=== PATIENT | female | born 1995 | race Caucasian/White ===

== ENCOUNTER 2017-01-10 12:11 | Inpatient (IN) ==
[2017-01-10 12:42] LABS: Basophils % 0.1 %; Hematocrit 45.7 % (35.3-44.9); Hemoglobin 14.9 g/dL (11.5-15.4); Immature Granulocytes % 0.6 % (0-4); Lymphocytes # 0.5 K/mcL (0.6-4.6); Lymphocytes % 2.6 %; Mean Corpuscular HGB Conc 32.6 g/dL (31.6-35.5); Mean Corpuscular Hemoglobin 28.9 pg (28.0-33.3); Mean Corpuscular Volume 88.7 fL (83.0-100.0); Mean Platelet Volume 10.1 fL (9.4-12.4); Monocytes % 5.9 %; Neutrophils # 15.9 K/mcL (1.6-8.9); Platelet Count 356 K/mcL (140-400); Red Blood Count 5.15 M/mcL (3.82-4.97); Red Cell Distribution Width 11.9 % (11.5-14.5); Segmented Neutrophils % 90.8 %
[2017-01-10 12:56] LABS: Alanine Aminotransferase 636 Units/L (0-55); Albumin 4.3 g/dL (3.5-5.0); Alkaline Phosphatase 151 Units/L (38-126); Aspartate Amino Transferase 1081 Units/L (5-34); BUN/Creatinine Ratio 14 (6-26); Bilirubin,Direct 0.2 mg/dL (0.0-0.5); Bilirubin,Indirect 0.1 mg/dL (0.0-1.2); Bilirubin,Total 0.3 mg/dL (0.2-1.2); Blood Urea Nitrogen 18 mg/dL (7-20); Calcium 9.4 mg/dL (8.6-10.8); Carbon Dioxide 23 mEq/L (19-29); Chloride 106 mEq/L (98-109); Globulin 4.3 g/dL (2.4-3.5); Glucose 203 mg/dL (70-99); Lipase 10 Units/L (8-78); Osmolality,Calculated 300 (280-300); Potassium 4.6 mEq/L (3.5-4.5); Sodium 141 mEq/L (136-145); Total Protein 8.6 g/dL (6.0-8.3); eGFR For African Americans > 60 (> 60); eGFR For Non-African Americans 50 (> 60)
[2017-01-10] MEDS ORDERED: 0.9 % Sodium Chloride 1,000 ML IVC ONE ×2 (13:08→15:26)
[2017-01-10 13:16] LABS: Bilirubin,Urine Negative (Negative); Blood,Urine Large (Negative); Clarity,Urine Turbid (Clear); Color,Urine Red (Yellow); Glucose,Urine (UA) 100 mg/dL (Normal); Ketones,Urine Trace mg/dL (Negative); Leukocyte Esterase,Urine Small (Negative); Nitrite,Urine Negative (Negative); Protein,Urine 100 mg/dL (Neg-Trace); Specific Gravity,Urine 1.022 (1.010-1.025); Urobilinogen,Urine Normal (Normal)
--- NOTE | 2017-01-10 13:17 | Emergency Department Note ---
Disposition Clinical Impression: Hepatitis, Vomiting, IVDU (intravenous drug user), Marijuana abuse, Bilateral leg numbness, Leukocytosis, Lactic acidosis, Abnormal urinalysis, Renal insufficiency Disposition: Admitted As Inpatient General Adult HPI - General Chief complaint: ED Nausea/Vomiting/Diarrhea Stated complaint: N/V x2 days Time Seen by Provider: 01/10/17 13:06 Source: patient, family Limitations: no limitations - History of Present Illness HPI Narrative: 22-year-old female reports to the emergency department complaining of recurrent vomiting. The patient denies abdominal pain fever chest pain shortness of breath cough runny nose or ear pain. No back pain or syncope. There is no history of vaginal discharge bleeding or noted currently. She has not taken any new medications. The patient denies any diarrhea. She has not passed out. There is no history of sick contacts. History of headache neck stiffness rash convulsions or confusion no trouble walking talking hearing seeing or speaking. Pain Scale: 0 - Related Data Home Medications Medication Instructions Recorded Confirmed Etonogestrel [Nexplanon] 68 mg SQ ONCE 03/15/16 01/10/17 Acyclovir [Zovirax] 400 mg PO BID 01/10/17 01/10/17 Ranitidine HCl [Acid Foley Artist] 150 mg PO BID 01/10/17 01/10/17 Trazodone HCl 100 mg PO HS 01/10/17 01/10/17 Allergies Allergy/AdvReac Type Severity Reaction Status Date / Time Loracarbef [From Lorabid] AdvReac Hives Verified 03/15/16 13:13 All systems ED: reviewed and negative except as stated. Past Medical History - Past Medical History Medical history: Reports: other (IV heroin abuse) Psychiatric history: Reports: anxiety, depression - Social History Smoking Status: Former smoker Smokeless Tobacco Status: No Alcohol use: Reports: none Drug use: Reports: none Physical Exam - General Limitations: no limitations General appearance: alert, in no apparent distress - Head Head exam: atraumatic, normocephalic, normal inspection - Eye Eye exam: Present: normal appearance, PERRL, EOMI. Absent: scleral icterus, conjunctival injection - ENT ENT exam: normal exam, normal oropharynx, mucous membranes moist - Neck Neck exam: Present: normal inspection, full ROM, trachea midline - Chest Chest inspection: Present: symmetric chest wall rise - Respiratory Respiratory exam: Present: normal lung sounds bilaterally. Absent: respiratory distress, wheezes, stridor, accessory muscle use, prolonged expiratory phase - Cardiovascular Cardiovascular exam: Present: regular rate, normal rhythm, normal heart sounds - Abdominal Exam Abdominal exam: Present: soft, Non-Tender, normal bowel sounds. Absent: tenderness, distention, guarding, rebound, rigidity, trauma, Rovsing's sign, tenderness at McBurney's Point, ascites - Extremities Exam Extremities exam: Present: normal inspection, full ROM, normal capillary refill. Absent: tenderness, pedal edema, joint swelling, calf tenderness - Expanded Lower Extremity Exam Neurovascular/Tendon exam: Present: normal capillary refill. Absent: pulse deficit, motor deficit, sensory deficit, tendon deficit, extremity cold to touch , pallor - Back Exam Back exam: Present: normal inspection, full ROM. Absent: tenderness, CVA tenderness (R), CVA tenderness (L), muscle spasm, paraspinal tenderness, vertebral tenderness - Neurological Exam Neurological exam: Present: alert, oriented X3, CN II-XII intact. Absent: motor sensory deficit - Psychiatric Psychiatric exam: Present: normal affect, normal mood - Skin Skin exam: Present: warm, dry, intact, normal color. Absent: rash, cyanosis, diaphoresis, erythema, pallor, mottled Course Vital Signs Temperature 98.1 F 01/10/17 12:17 Pulse Rate 96 01/10/17 12:17 Respiratory Rate 18 01/10/17 12:17 Blood Pressure 106/66 01/10/17 12:17 O2 Sat by Pulse Oximetry 100 01/10/17 12:17 Temperature 97.6 F 01/10/17 13:31 Pulse Rate 85 01/10/17 13:31 Respiratory Rate 16 01/10/17 15:12 Blood Pressure 111/66 01/10/17 15:12 O2 Sat by Pulse Oximetry 98 01/10/17 13:31 Oxygen Delivery Oxygen Delivery Room Air Medical Decision Making - [facility] Narrative Medical decision making narrative: The patient has had vomiting, she has no medical leukocytosis potential acute renal insufficiency and lactic acidosis associated with notably abnormal liver function test. She has a history of IV drug abuse, hepatitis is certainly high in the differential, hepatitis panel was ordered, IV fluids were given. CT scan of the abdomen reveals no acute disease. During her stay the patient reported she had weakness in her legs, she states she is unable to stand well. Objectively she seems to have normative muscle strength and sensation. She describes an element of tingling or numbness. Based on the patient's vomiting, renal abnormalities, lactic acidosis, abnormal liver function tests, and complaints of leg weakness and/or numbness, I thought it would be appropriate to admit the patient to the hospital for further evaluation. She is agreeable and prefers to stay she does not feel comfortable going home. I reviewed the case with the hospitalist on-call who is accepting the patient to their care. The patient is currently stable pending admission. - Lab Data Lab results reviewed: Yes I reviewed the patient's lab results. Result diagrams: 01/10/17 12:33 01/10/17 12:33 Lab Results 01/10/17 01/10/17 01/10/17 Range/Units 12:33 12:33 13:04 WBC 17.5 H (4.3-11.1) K/mcL RBC 5.15 H (3.82-4.97) M/mcL Hgb 14.9 (11.5-15.4) g/dL Hct 45.7 H (35.3-44.9) % MCV 88.7 (83.0-100.0) fL MCH 28.9 (28.0-33.3) pg MCHC 32.6 (31.6-35.5) g/dL RDW 11.9 (11.5-14.5) % Plt Count 356 (140-400) K/mcL MPV 10.1 (9.4-12.4) fL Immature Gran % 0.6 (0-4) % Seg Neutrophils % 90.8 % Lymphocytes % 2.6 % Monocytes % 5.9 % Eosinophils % 0.0 % Basophils % 0.1 % Neutrophils # 15.9 H (1.6-8.9) K/mcL Lymphocytes # 0.5 L (0.6-4.6) K/mcL Monocytes # 1.0 (0.0-1.3) K/mcL Eosinophils # 0.0 (0.0-0.6) K/mcL Basophils # 0.0 (0.0-0.2) K/mcL Sodium 141 (136-145) mEq/L Potassium 4.6 H (3.5-4.5) mEq/L Chloride 106 (98-109) mEq/L Carbon Dioxide 23 (19-29) mEq/L BUN 18 (7-20) mg/dL Creatinine 1.32 H (0.57-1.11) mg/dL Est GFR ( Amer) > 60 (> 60) Est GFR (Non-Af Amer) 50 L (> 60) BUN/Creatinine Ratio 14 (6-26) Glucose 203 H (70-99) mg/dL Calculated Osmolality 300 (280-300) Lactic Acid (0.5-2.2) mmol/L Calcium 9.4 (8.6-10.8) mg/dL Total Bilirubin 0.3 (0.2-1.2) mg/dL Direct Bilirubin 0.2 (0.0-0.5) mg/dL Indirect Bilirubin 0.1 (0.0-1.2) mg/dL AST 1081 H (5-34) Units/L ALT 636 H (0-55) Units/L Alkaline Phosphatase 151 H (38-126) Units/L Creatine Kinase (29-168) Units/L C-Reactive Protein (Less than 5) mg/L Serum Total Protein 8.6 H (6.0-8.3) g/dL Albumin 4.3 (3.5-5.0) g/dL Globulin 4.3 H (2.4-3.5) g/dL Albumin/Globulin Ratio 1.0 L (1.1-2.2) Lipase 10 (8-78) Units/L Urine Color Red A (Yellow) Urine Clarity Turbid A (Clear) Urine pH 6.0 (5.0-8.0) pH Units Ur Specific [place] 1.022 (1.010-1.025) Urine Protein 100 H (Neg-Trace) mg/dL Urine Glucose (UA) 100 H (Normal) mg/dL Urine Ketones Trace H (Negative) mg/dL Urine Blood Large H (Negative) Urine Nitrite Negative (Negative) Urine Bilirubin Negative (Negative) Urine Urobilinogen Normal (Normal) mg/dL Ur Leukocyte Esterase Small H (Negative) Urine Microscopic RBC 15-30 H (0-3) per hpf Urine Microscopic WBC 5-15 H (0-3) per hpf Ur Squamous Epith Cells Many H (None-Few) per lpf Urine Bacteria None Seen (None-Few) per hpf Ur Culture Indicated? YES A (NO) Urine Test (Negative) Salicylates (15-30) mg/dL Urine Opiates Screen (Ktrdnk=365) ng/mL Acetaminophen (10-30) mcg/mL Ur Barbiturates Screen (Rzmeri=564) ng/mL Ur Phencyclidine Scrn (Cutoff=25) ng/mL Ur Amphetamines Screen (Awlpyk=9327) ng/mL U Benzodiazepines Scrn (Gkkzcp=745) ng/mL Urine Cocaine Screen (Cutoff= 300) ng/mL U Marijuana (THC) Screen (Cutoff = 50) ng/mL 01/10/17 01/10/17 01/10/17 Range/Units 13:04 13:08 13:12 WBC (4.3-11.1) K/mcL RBC (3.82-4.97) M/mcL Hgb (11.5-15.4) g/dL Hct (35.3-44.9) % MCV (83.0-100.0) fL MCH (28.0-33.3) pg MCHC (31.6-35.5) g/dL RDW (11.5-14.5) % Plt Count (140-400) K/mcL MPV (9.4-12.4) fL Immature Gran % (0-4) % Seg Neutrophils % % Lymphocytes % % Monocytes % % Eosinophils % % Basophils % % Neutrophils # (1.6-8.9) K/mcL Lymphocytes # (0.6-4.6) K/mcL Monocytes # (0.0-1.3) K/mcL Eosinophils # (0.0-0.6) K/mcL Basophils # (0.0-0.2) K/mcL Sodium (136-145) mEq/L Potassium (3.5-4.5) mEq/L Chloride (98-109) mEq/L Carbon Dioxide (19-29) mEq/L BUN (7-20) mg/dL Creatinine (0.57-1.11) mg/dL Est GFR ( Amer) (> 60) Est GFR (Non-Af Amer) (> 60) BUN/Creatinine Ratio (6-26) Glucose (70-99) mg/dL Calculated Osmolality (280-300) Lactic Acid 3.3 H (0.5-2.2) mmol/L Calcium (8.6-10.8) mg/dL Total Bilirubin (0.2-1.2) mg/dL Direct Bilirubin (0.0-0.5) mg/dL Indirect Bilirubin (0.0-1.2) mg/dL AST (5-34) Units/L ALT (0-55) Units/L Alkaline Phosphatase (38-126) Units/L Creatine Kinase (29-168) Units/L C-Reactive Protein (Less than 5) mg/L Serum Total Protein (6.0-8.3) g/dL Albumin (3.5-5.0) g/dL Globulin (2.4-3.5) g/dL Albumin/Globulin Ratio (1.1-2.2) Lipase (8-78) Units/L Urine Color (Yellow) Urine Clarity (Clear) Urine pH (5.0-8.0) pH Units Ur Specific [place] (1.010-1.025) Urine Protein (Neg-Trace) mg/dL Urine Glucose (UA) (Normal) mg/dL Urine Ketones (Negative) mg/dL Urine Blood (Negative) Urine Nitrite (Negative) Urine Bilirubin (Negative) Urine Urobilinogen (Normal) mg/dL Ur Leukocyte Esterase (Negative) Urine Microscopic RBC (0-3) per hpf Urine Microscopic WBC (0-3) per hpf Ur Squamous Epith Cells (None-Few) per lpf Urine Bacteria (None-Few) per hpf Ur Culture Indicated? (NO) Urine Test Negative (Negative) Salicylates (15-30) mg/dL Urine Opiates Screen Negative (Ieigdw=576) ng/mL Acetaminophen (10-30) mcg/mL Ur Barbiturates Screen Negative (Frnxiy=137) ng/mL Ur Phencyclidine Scrn Negative (Cutoff=25) ng/mL Ur Amphetamines Screen Negative (Lmkgkc=1725) ng/mL U Benzodiazepines Scrn Positive H (Ftitxr=972) ng/mL Urine Cocaine Screen Negative (Cutoff= 300) ng/mL U Marijuana (THC) Screen Positive H (Cutoff = 50) ng/mL 01/10/17 01/10/17 Range/Units 13:12 13:12 WBC (4.3-11.1) K/mcL RBC (3.82-4.97) M/mcL Hgb (11.5-15.4) g/dL Hct (35.3-44.9) % MCV (83.0-100.0) fL MCH (28.0-33.3) pg MCHC (31.6-35.5) g/dL RDW (11.5-14.5) % Plt Count (140-400) K/mcL MPV (9.4-12.4) fL Immature Gran % (0-4) % Seg Neutrophils % % Lymphocytes % % Monocytes % % Eosinophils % % Basophils % % Neutrophils # (1.6-8.9) K/mcL Lymphocytes # (0.6-4.6) K/mcL Monocytes # (0.0-1.3) K/mcL Eosinophils # (0.0-0.6) K/mcL Basophils # (0.0-0.2) K/mcL Sodium (136-145) mEq/L Potassium (3.5-4.5) mEq/L Chloride (98-109) mEq/L Carbon Dioxide (19-29) mEq/L BUN (7-20) mg/dL Creatinine (0.57-1.11) mg/dL Est GFR ( Amer) (> 60) Est GFR (Non-Af Amer) (> 60) BUN/Creatinine Ratio (6-26) Glucose (70-99) mg/dL Calculated Osmolality (280-300) Lactic Acid (0.5-2.2) mmol/L Calcium (8.6-10.8) mg/dL Total Bilirubin (0.2-1.2) mg/dL Direct Bilirubin (0.0-0.5) mg/dL Indirect Bilirubin (0.0-1.2) mg/dL AST (5-34) Units/L ALT (0-55) Units/L Alkaline Phosphatase (38-126) Units/L Creatine Kinase > 36481 H (29-168) Units/L C-Reactive Protein 7 H (Less than 5) mg/L Serum Total Protein (6.0-8.3) g/dL Albumin (3.5-5.0) g/dL Globulin (2.4-3.5) g/dL Albumin/Globulin Ratio (1.1-2.2) Lipase (8-78) Units/L Urine Color (Yellow) Urine Clarity (Clear) Urine pH (5.0-8.0) pH Units Ur Specific [place] (1.010-1.025) Urine Protein (Neg-Trace) mg/dL Urine Glucose (UA) (Normal) mg/dL Urine Ketones (Negative) mg/dL Urine Blood (Negative) Urine Nitrite (Negative) Urine Bilirubin (Negative) Urine Urobilinogen (Normal) mg/dL Ur Leukocyte Esterase (Negative) Urine Microscopic RBC (0-3) per hpf Urine Microscopic WBC (0-3) per hpf Ur Squamous Epith Cells (None-Few) per lpf Urine Bacteria (None-Few) per hpf Ur Culture Indicated? (NO) Urine Test (Negative) Salicylates < 5.0 L (15-30) mg/dL Urine Opiates Screen (Plbfsk=602) ng/mL Acetaminophen < 1.0 L (10-30) mcg/mL Ur Barbiturates Screen (Mnfede=644) ng/mL Ur Phencyclidine Scrn (Cutoff=25) ng/mL Ur Amphetamines Screen (Skfqnb=0896) ng/mL U Benzodiazepines Scrn (Ufbizm=188) ng/mL Urine Cocaine Screen (Cutoff= 300) ng/mL U Marijuana (THC) Screen (Cutoff = 50) ng/mL - Radiology Data Radiology results reviewed: Yes I reviewed the patient's radiology results.
[2017-01-10 13:19] LABS: Bacteria,Urine None Seen per hpf (None-Few); Squamous Epithelial Cell,Urine Many per lpf (None-Few)
[2017-01-10 13:31] LABS: RBC,Urine 15-30 per hpf (0-3)
[2017-01-10 13:54] LABS: Acetaminophen < 1.0 mcg/mL (10-30); Salicylate < 5.0 mg/dL (15-30)
[2017-01-10 14:06] LABS: Amphetamine Screen,Urine Negative ng/mL (Cutoff=1000); Barbiturate Screen,Urine Negative ng/mL (Cutoff=200); Benzodiazepines Screen,Urine Positive ng/mL (Cutoff=200); Cannabinoid Screen,Urine Positive ng/mL (Cutoff = 50); Cocaine Screen,Urine Negative ng/mL (Cutoff= 300); Opiate Screen,Urine Negative ng/mL (Cutoff=300); Phencyclidine Screen,Urine Negative ng/mL (Cutoff=25)
[2017-01-10 14:52] LABS: Creatine Kinase > 42670 Units/L (29-168)
[2017-01-10] MEDS ORDERED: Mag Hydrox/Al Hydrox/Simeth 30 ML UDC PO PRN (15:46)
[2017-01-10] MEDS ORDERED: *HR* Promethazine 25 MG/ML VIAL IVP PRN (15:46)
[2017-01-10] MEDS ORDERED: Naloxone 0.4 MG/ML INJ IVP PRN (15:46)
--- NOTE | 2017-01-10 15:54 | Internal Med History&Physical ---
Date of Encounter: 01/10/17 Time of Encounter: 15:52 Assessment and Plan (1) Rhabdomyolysis Current visit: Yes Status: Acute Will admit the pt into Tele Pt does have severe rhabdomyolysis - could be due to dehydration Cont aggressive IV hydration Cont close monitoring her CK total Q6hr Trend on Lactic acid Blood sugars are slightly elevated will check HbA1C Also will do ACHS Accuchecks Qualifiers: Qualified Code(s): M62.82 - Rhabdomyolysis (2) Bilateral leg numbness Current visit: Yes Status: Acute Mostly due to rhabdomyolysis No signs of compartment syndrome will cont close monitoring (3) Hepatitis Current visit: Yes Status: Acute Mostly alcohol induced also conerned for viral hepatitis will check viral hepatitis panel cont symptomatic and supportive care (4) Leukocytosis Current visit: Yes Status: Acute Mostly reactive no signs of infection no need of abx cont trending on WBC Qualifiers: Qualified Code(s): D72.829 - Elevated white blood cell count, unspecified (5) Alcohol dependence Current visit: Yes Status: Acute She does drink 6 pack beers few times a week has last alcohol 2 days ago will monitor for withdrawl symptoms CIWA protocol Qualifiers: Qualified Code(s): F10.20 - Alcohol dependence, uncomplicated (6) Renal insufficiency Current visit: Yes Status: Acute due to dehydration on IV fluids (7) Marijuana abuse Current visit: Yes Status: Acute Counseled to quit drugs Internal Medicine - H&P: HPI Chief complaint: Nausea / Vomiting Admitted From: Emergency Dept Plans for Post Hospital Care: Home History of present illness: Ms. 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 Unable to hold anything down. She also c/o severe numbness in both feet. Denied any diarrhea. Denied any abdominal pain. No CP / SOB. Denied any sick contacts. Denied any recent travel history. Past Med Surg Social Fam HX - Past Medical History Medical history: other (IV heroin abuse) Psychiatric history: anxiety, depression - Past Surgical History Surgical History: no surgical history - Social History Smoking Status: Former smoker Smokeless Tobacco Status: No Alcohol use: heavy, recent (drinks 6 pack 2-3 times a week) Drug use: none Occupational status: employed - Additional Family History Additional family history: Reviewed and non contribuitory to current problem Internal Medicine - H&P: Meds Etonogestrel [Nexplanon] 68 mg SQ ONCE 03/15/16 [History] Acyclovir [Zovirax] 400 mg PO BID 01/10/17 [History] Ranitidine HCl [Acid Instrument Panel Assembler] 150 mg PO BID 01/10/17 [History] Trazodone HCl 100 mg PO HS 01/10/17 [History] 3 Allergy/AdvReac Type Severity Reaction Status Date / Time Loracarbef [From Lorabid] AdvReac Hives Verified 03/15/16 13:13 All Systems PM: A 10-system review of systems was performed and is negative for pertinent findings except as documented above in the HPI. Review of systems: All the systems are reviewed everything is benign except the systems and symptoms I mentioned in the history of present illness - Constitutional Vitals: Temp Pulse Resp BP Pulse Ox 97.9 F 97 16 108/68 97 01/10/17 15:41 01/10/17 15:41 01/10/17 15:41 01/10/17 15:41 01/10/17 15:41 General appearance: Present: A&O X 3 - Head Head exam: Present: atraumatic, normal inspection - Respiratory Respiratory exam: Present: CTAB. Absent: accessory muscle use, rales, rhonchi, wheezes - Cardiovascular Cardiovascular exam: Present: RRR, +S1, +S2. Absent: diastolic murmur, gallop, rubs, systolic murmur - GI/Abdominal GI/Abdominal exam: Present: normal bowel sounds, soft, no peritoneal signs. Absent: distended, tenderness - Extremities Exam Extremities exam: Present: warm, radial pulses palpable and symmetrical. Absent : calf tenderness, cyanotic, pedal edema Additional comments: no tenderness... No swelling noticed in both LE - Neurological Exam Neurological exam: Present: alert, CN II-XII intact, oriented X3, no focal deficits, strengths equal and symetr throughout Additional comments: mild sensory deficit in both feet to fine touch. - Psychiatric Psychiatric exam: Present: normal affect, normal mood Internal Med - H&P Results - Labs CBC & Chem 7: 01/10/17 12:33 01/10/17 12:33
[2017-01-10] MEDS ORDERED: 0.9 % Sodium Chloride 1,000 ML IVC SCH (16:00)
[2017-01-10] MEDS: Nicotine 14 MG PATCH.TD24 TD SCH (17:20)
[2017-01-10] MEDS: Ondansetron 4 MG/2 ML VIAL IVP PRN (17:41)
[2017-01-10] MEDS: *HR* Morphine 2 MG/ML SYRINGE IVP PRN (19:51)
[2017-01-10] MEDS: Famotidine 20 MG TABLET PO SCH (19:53)
[2017-01-10] MEDS: 0.9 % Sodium Chloride 1,000 ML IVC SCH ×2 (19:54→22:07)
[2017-01-11] MEDS: *HR* OxyCODONE Immed Rel 5 MG TABLET PO PRN ×4 (00:04→20:22)
[2017-01-11 00:52] LABS: Hematocrit 39.5 % (35.3-44.9); Immature Granulocytes % 0.2 % (0-4); Lymphocytes % 15.2 %; Mean Corpuscular HGB Conc 33.2 g/dL (31.6-35.5); Mean Corpuscular Hemoglobin 29.8 pg (28.0-33.3); Mean Corpuscular Volume 89.8 fL (83.0-100.0); Mean Platelet Volume 10.2 fL (9.4-12.4); Monocytes % 8.5 %; Platelet Count 286 K/mcL (140-400); Red Cell Distribution Width 12.3 % (11.5-14.5); Segmented Neutrophils % 75.7 %
[2017-01-11 00:53] LABS: Basophils % 0.2 %; Eosinophils % 0.2 %; Hemoglobin 13.1 g/dL (11.5-15.4); Lymphocytes # 1.9 K/mcL (0.6-4.6); Monocytes # 1.1 K/mcL (0.0-1.3); Neutrophils # 9.3 K/mcL (1.6-8.9)
[2017-01-11 01:13] LABS: Alanine Aminotransferase 550 Units/L (0-55); Alkaline Phosphatase 114 Units/L (38-126); Aspartate Amino Transferase 968 Units/L (5-34); BUN/Creatinine Ratio 11 (6-26); Bilirubin,Total 0.4 mg/dL (0.2-1.2); Blood Urea Nitrogen 10 mg/dL (7-20); Calcium 8.3 mg/dL (8.6-10.8); Carbon Dioxide 21 mEq/L (19-29); Chloride 110 mEq/L (98-109); Chol/HDL Ratio 2.9 (0-4.9); Cholesterol 143 mg/dL (< 200); Globulin 3.3 g/dL (2.4-3.5); Glucose 88 mg/dL (70-99); HDL Cholesterol 50 mg/dL (40-59); LDL Cholesterol,Calculated 83 mg/dL (0-99); Magnesium 1.8 mg/dL (1.6-2.6); Osmolality,Calculated 284 (280-300); Phosphorous 2.7 mg/dL (2.3-4.7); Potassium 4.2 mEq/L (3.5-4.5); Sodium 138 mEq/L (136-145); Triglycerides 49 mg/dL (< 150); eGFR For African Americans > 60 (> 60); eGFR For Non-African Americans > 60 (> 60)
[2017-01-11 01:14] LABS: Albumin 3.2 g/dL (3.5-5.0); Total Protein 6.5 g/dL (6.0-8.3)
[2017-01-11] MEDS: 0.9 % Sodium Chloride 1,000 ML IVC SCH ×5 (02:10→22:40)
[2017-01-11] MEDS: *HR* Morphine 2 MG/ML SYRINGE IVP PRN ×2 (06:13→12:27)
[2017-01-11] MEDS: Famotidine 20 MG TABLET PO SCH ×2 (08:35→20:22)
[2017-01-11] MEDS: Nicotine 14 MG PATCH.TD24 TD SCH (09:04)
[2017-01-11] MEDS ORDERED: *HR* LORazepam 2 MG/ML VIAL IVP PRN ×3 (10:48)
[2017-01-11 11:40] LABS: Triiodothyronine (T3) Free 2.9 pg/mL (1.71-3.71)
[2017-01-11] MEDS ORDERED: Ketorolac 30 MG/ML VIAL IVP ONE (13:43)
--- NOTE | 2017-01-11 17:02 | Internal Med Progress Note ---
Date of Encounter: 01/11/17 Time of Encounter: 09:25 - Assessment and plan (1) Rhabdomyolysis Current Visit: Yes Status: Acute Assessment and plan: Acute rhabdomyolysis. Uncertain etiology. Discussed with rheumatology. We will send for testing to rule out rheumatologic disorders which can cause muscle injury. CPK levels are improving. We will continue to monitor. Renal function has normalized. Pain control. Will arrange for follow-up with rheumatology after discharge to further evaluate patient. Qualifiers: Rhabdomyolysis type: non-traumatic Qualified Code(s): M62.82 - Rhabdomyolysis (2) Group B streptococcal bacteriuria Current Visit: Yes Status: Acute Assessment and plan: Urine positive for group B streptococci. Although patient is not , given no other cause for her rhabdomyolysis, we will treat this episode with penicillins. (3) Alcohol dependence Current Visit: Yes Status: Chronic Assessment and plan: No signs of withdrawal at this time. We will continue to monitor per [facility] protocol Qualifiers: Qualified Code(s): F10.20 - Alcohol dependence, uncomplicated (4) Bilateral leg numbness Current Visit: Yes Status: Acute Assessment and plan: Likely related to rhabdomyolysis. Patient does have recurring sensation and good strength in both lower extremities (5) Hepatitis Current Visit: Yes Status: Suspected Assessment and plan: Elevated liver markers most likely related to rhabdomyolysis. Hepatitis viral serologies have been sent and will be followed (6) Leukocytosis Current Visit: Yes Status: Acute Assessment and plan: Likely related to rhabdomyolysis. Improving WBC count Qualifiers: Qualified Code(s): D72.829 - Elevated white blood cell count, unspecified (7) Marijuana abuse Current Visit: Yes Status: Acute (8) Renal insufficiency Current Visit: Yes Status: Resolved Assessment and plan: This has now resolved - Subjective Interval history: Patient complains of continued lower extremity pain bilaterally. Continues to report numbness but it is getting better. Has good strength in both lower extremities. No fever or chills reported overnight. No rashes. Having good urine output. - Constitutional Vitals: Temp Pulse Resp BP Pulse Ox 98.1 F 82 16 103/67 97 01/11/17 14:49 01/11/17 14:49 01/11/17 14:49 01/11/17 14:49 01/11/17 14:49 General appearance: Present: cooperative, mild distress, A&O X 3, pleasant, answers questions appropriately - Neck Neck exam general surgery: Present: supple, trachea midline. Absent: lymphadenopathy - Respiratory Respiratory exam: Present: CTAB. Absent: accessory muscle use, rales, rhonchi, wheezes - Cardiovascular Cardiovascular exam: Present: RRR, +S1, +S2. Absent: diastolic murmur, gallop, rubs, systolic murmur - GI/Abdominal GI/Abdominal exam: Present: normal bowel sounds, soft, no peritoneal signs. Absent: distended, tenderness - Extremities Exam Extremities exam: Present: tenderness (Bilateral lower extremity muscle tenderness Especially over the right upper thigh muscles), warm, radial pulses palpable and symmetrical. Absent: calf tenderness, cyanotic, pedal edema - Neurological Exam Neurological exam: Present: CN II-XII intact, oriented X3, no focal deficits, strengths equal and symetr throughout. Absent: facial droop, speech deficit Additional comments: Patient does have good strength in both lower extremities. Reports numbness to light touch but does have good temperature sensation. - Skin Skin exam: Present: dry, intact Internal Medicine: Result - Labs CBC & Chem 7: 01/11/17 00:42 01/11/17 00:42 Labs: Short CBC 01/11/17 Range/Units 00:42 WBC 12.3 H (4.3-11.1) K/mcL Hgb 13.1 D (11.5-15.4) g/dL Hct 39.5 (35.3-44.9) % Plt Count 286 (140-400) K/mcL Neutrophils # 9.3 H (1.6-8.9) K/mcL BMP 01/11/17 00:42 Sodium 138 Potassium 4.2 Chloride 110 H Carbon Dioxide 21 BUN 10 Creatinine 0.87 Glucose 88 Calcium 8.3 L Liver Function 01/11/17 Range/Units 00:42 Total Bilirubin 0.4 (0.2-1.2) mg/dL AST 968 H (5-34) Units/L ALT 550 H (0-55) Units/L Alkaline Phosphatase 114 (38-126) Units/L Albumin 3.2 L D (3.5-5.0) g/dL Consult Discharge Plan - Plan Referrals: Millie Walsh [Student Nurse] - 01/17/17 9:30 am NONE,PCP [Primary Care Provider] -
[2017-01-11] MEDS: Ampicillin 2 GM in 0.9 % Sodium Chloride Mini Bag 100 ML IVPB SCH (18:00)
[2017-01-11] MEDS: *HR* Heparin 5,000 UNIT/ML VIAL SQ SCH (18:00)
[2017-01-11] MEDS: Ondansetron 4 MG/2 ML VIAL IVP PRN (21:51)
[2017-01-12] MEDS: Ampicillin 2 GM in 0.9 % Sodium Chloride Mini Bag 100 ML IVPB SCH ×4 (00:21→16:19)
[2017-01-12 05:15] LABS: Basophils % 0.3 %; Eosinophils # 0.1 K/mcL (0.0-0.6); Eosinophils % 1.3 %; Hematocrit 34.5 % (35.3-44.9); Immature Granulocytes % 0.3 % (0-4); Lymphocytes # 2.1 K/mcL (0.6-4.6); Lymphocytes % 30.7 %; Mean Corpuscular Hemoglobin 29.5 pg (28.0-33.3); Mean Corpuscular Volume 89.4 fL (83.0-100.0); Mean Platelet Volume 10.5 fL (9.4-12.4); Monocytes # 0.6 K/mcL (0.0-1.3); Neutrophils # 4.1 K/mcL (1.6-8.9); Platelet Count 236 K/mcL (140-400); Red Blood Count 3.86 M/mcL (3.82-4.97); Red Cell Distribution Width 12.3 % (11.5-14.5); Segmented Neutrophils % 58.4 %
[2017-01-12 05:23] LABS: Hemoglobin 11.4 g/dL (11.5-15.4)
[2017-01-12 05:30] LABS: Alanine Aminotransferase 426 Units/L (0-55); Albumin 2.6 g/dL (3.5-5.0); Albumin/Globulin Ratio 0.9 (1.1-2.2); Alkaline Phosphatase 86 Units/L (38-126); Aspartate Amino Transferase 579 Units/L (5-34); Bilirubin,Total 0.4 mg/dL (0.2-1.2); Calcium 8.4 mg/dL (8.6-10.8); Carbon Dioxide 22 mEq/L (19-29); Chloride 113 mEq/L (98-109); Globulin 2.9 g/dL (2.4-3.5); Glucose 90 mg/dL (70-99); Osmolality,Calculated 288 (280-300); Potassium 3.8 mEq/L (3.5-4.5); Sodium 141 mEq/L (136-145); Total Protein 5.5 g/dL (6.0-8.3); eGFR For African Americans > 60 (> 60); eGFR For Non-African Americans > 60 (> 60)
[2017-01-12] MEDS: *HR* Heparin 5,000 UNIT/ML VIAL SQ SCH ×2 (05:30→16:21)
[2017-01-12] MEDS: *HR* OxyCODONE Immed Rel 5 MG TABLET PO PRN ×2 (05:33→19:57)
[2017-01-12] MEDS: 0.9 % Sodium Chloride 1,000 ML IVC SCH ×2 (05:34→11:52)
[2017-01-12 06:50] LABS: Creatine Kinase 22609 Units/L (29-168)
[2017-01-12 07:01] LABS: BUN/Creatinine Ratio 7 (6-26)
[2017-01-12 07:02] LABS: Blood Urea Nitrogen 4 mg/dL (7-20)
[2017-01-12] MEDS: Thiamine (B-1) 100 MG TABLET PO SCH (08:48)
[2017-01-12] MEDS: Folic Acid 1 MG TABLET PO SCH (08:48)
[2017-01-12] MEDS: Famotidine 20 MG TABLET PO SCH ×2 (08:48→19:58)
[2017-01-12] MEDS: Nicotine 14 MG PATCH.TD24 TD SCH (08:53)
[2017-01-12] MEDS: Vitamin B Complex/Vit C/Vit E 1 EACH TABLET PO SCH (08:53)
[2017-01-12] MEDS: Acetaminophen/Butalbital/CaffeineTABLET PO PRN ×2 (09:52→17:30)
[2017-01-12] MEDS: Ondansetron 4 MG/2 ML VIAL IVP PRN ×2 (09:53→19:31)
[2017-01-12 10:16] LABS: Hepatitis A Antibody IgM Nonreactive (Nonreactive); Hepatitis B Core IgM Nonreactive (Nonreactive); Hepatitis B Surface Antigen Nonreactive (Nonreactive); Hepatitis C Virus Antibody Reactive (Nonreactive)
--- NOTE | 2017-01-12 15:28 | Internal Med Progress Note ---
Date of Encounter: 01/12/17 Time of Encounter: 09:15 - Assessment and plan (1) Rhabdomyolysis Current Visit: Yes Status: Acute Assessment and plan: CK levels continued to trend down. Continue IV hydration. Rheumatologic workup has so far been negative. We will arrange follow-up with rheumatology as outpatient for further evaluation as to causes of her rhabdomyolysis. Qualifiers: Rhabdomyolysis type: non-traumatic Qualified Code(s): M62.82 - Rhabdomyolysis (2) Group B streptococcal bacteriuria Current Visit: Yes Status: Acute Assessment and plan: Treating with ampicillin (3) Alcohol dependence Current Visit: Yes Status: Chronic Assessment and plan: Not in withdrawal. Continue monitoring per [facility] protocol. Qualifiers: Substance use status: uncomplicated Qualified Code(s): F10.20 - Alcohol dependence, uncomplicated (4) Bilateral leg numbness Current Visit: Yes Status: Acute Assessment and plan: Improving. Likely from muscle injury and rhabdomyolysis. (5) Hepatitis Current Visit: Yes Status: Acute Assessment and plan: Patient positive for hepatitis C. (6) Leukocytosis Current Visit: Yes Status: Resolved Qualifiers: Qualified Code(s): D72.829 - Elevated white blood cell count, unspecified (7) Marijuana abuse Current Visit: Yes Status: Acute (8) Renal insufficiency Current Visit: Yes Status: Resolved - Subjective Interval history: Patient is feeling better today. Feels that the sensation and strength in her lower extremities is improving. Does complain of a severe migraine headache. She does not report history of migraines. No blurred vision. No neck stiffness. No pain anywhere else. Able to ambulate to and from from bedside commode. - Constitutional Vitals: Temp Pulse Resp BP Pulse Ox 98.4 F 82 16 135/97 95 01/12/17 14:56 01/12/17 14:56 01/12/17 14:56 01/12/17 14:56 01/12/17 14:56 General appearance: Present: cooperative, mild distress, A&O X 3, pleasant, answers questions appropriately - Respiratory Respiratory exam: Present: CTAB. Absent: accessory muscle use, rales, rhonchi, wheezes - Cardiovascular Cardiovascular exam: Present: RRR, +S1, +S2. Absent: diastolic murmur, gallop, rubs, systolic murmur - GI/Abdominal GI/Abdominal exam: Present: normal bowel sounds, soft, no peritoneal signs. Absent: distended, tenderness - Extremities Exam Extremities exam: Present: warm, radial pulses palpable and symmetrical. Absent : calf tenderness, cyanotic, pedal edema, tenderness - Neurological Exam Neurological exam: Present: alert, CN II-XII intact, oriented X3, no focal deficits. Absent: facial droop, speech deficit - Skin Skin exam: Present: dry, intact Internal Medicine: Result - Labs CBC & Chem 7: 01/12/17 04:54 01/12/17 04:54 Labs: Short CBC 01/12/17 Range/Units 04:54 WBC 7.0 (4.3-11.1) K/mcL Hgb 11.4 L D (11.5-15.4) g/dL Hct 34.5 L (35.3-44.9) % Plt Count 236 (140-400) K/mcL Neutrophils # 4.1 (1.6-8.9) K/mcL BMP 01/12/17 04:54 Sodium 141 Potassium 3.8 Chloride 113 H Carbon Dioxide 22 BUN 4 L Creatinine 0.60 Glucose 90 Calcium 8.4 L Liver Function 01/12/17 Range/Units 04:54 Total Bilirubin 0.4 (0.2-1.2) mg/dL AST 579 H (5-34) Units/L ALT 426 H (0-55) Units/L Alkaline Phosphatase 86 (38-126) Units/L Albumin 2.6 L (3.5-5.0) g/dL Consult Discharge Plan - Plan Referrals: Millie Walsh [Student Nurse] - 01/17/17 9:30 am NONE,PCP [Primary Care Provider] -
[2017-01-12] MEDS: D5% in 0.45% NACL 1,000 ML IVC SCH (16:21)
[2017-01-13] MEDS: Ampicillin 2 GM in 0.9 % Sodium Chloride Mini Bag 100 ML IVPB SCH ×2 (00:16→05:32)
[2017-01-13] MEDS: Acetaminophen/Butalbital/CaffeineTABLET PO PRN (02:58)
[2017-01-13] MEDS: D5% in 0.45% NACL 1,000 ML IVC SCH ×2 (03:00→10:59)
[2017-01-13] MEDS: *HR* Heparin 5,000 UNIT/ML VIAL SQ SCH (05:34)
[2017-01-13 07:35] VITALS: BP 100/64
[2017-01-13] MEDS: Thiamine (B-1) 100 MG TABLET PO SCH (08:33)
[2017-01-13] MEDS: Folic Acid 1 MG TABLET PO SCH (08:33)
[2017-01-13] MEDS: Vitamin B Complex/Vit C/Vit E 1 EACH TABLET PO SCH (08:33)
[2017-01-13] MEDS: Famotidine 20 MG TABLET PO SCH (08:33)
[2017-01-13] MEDS: *HR* OxyCODONE Immed Rel 5 MG TABLET PO PRN (08:39)
[2017-01-13] MEDS: Nicotine 14 MG PATCH.TD24 TD SCH (10:26)
--- NOTE | 2017-01-13 11:54 | Discharge Summary ---
Date of Encounter: 01/13/17 Time of Encounter: 11:42 - Discharge Diagnosis (1) Rhabdomyolysis Priority: Primary Status: Acute Qualifiers: Rhabdomyolysis type: non-traumatic Qualified Code(s): M62.82 - Rhabdomyolysis (2) Group B streptococcal bacteriuria Priority: Secondary Status: Acute (3) Alcohol dependence Priority: Secondary Status: Chronic Qualifiers: Substance use status: uncomplicated Qualified Code(s): F10.20 - Alcohol dependence, uncomplicated (4) Bilateral leg numbness Priority: Secondary Status: Acute (5) Hepatitis Priority: Secondary Status: Acute (6) Leukocytosis Priority: Secondary Status: Resolved Qualifiers: Leukocytosis type: other Qualified Code(s): D72.828 - Other elevated white blood cell count (7) Marijuana abuse Priority: Secondary Status: Acute (8) Renal insufficiency Priority: Secondary Status: Resolved - Discharge Medications Prescriptions: Ampicillin Trihydrate 500 mg PO Q6H #6 capsule Home Medications: Etonogestrel [Nexplanon] 68 mg SQ ONCE 03/15/16 [History] Acyclovir [Zovirax] 400 mg PO BID 01/10/17 [History] Ranitidine HCl [Acid Radio Antenna Installer] 150 mg PO BID 01/10/17 [History] Trazodone HCl 100 mg PO HS 01/10/17 [History] Ampicillin Trihydrate 500 mg PO Q6H #6 capsule 01/13/17 [Rx] Allergies/Adverse Reactions: 3 Allergy/AdvReac Type Severity Reaction Status Date / Time Loracarbef [From Lorabid] AdvReac Hives Verified 03/15/16 13:13 Date of admission: 01/10/17 15:58 Primary care physician: PCP NONE Discharging clinician: Jose Villarreal Anticipated date of discharge: 01/13/17 - Patient Status Disposition: Home, Self-Care Condition: Good Functional capacity at discharge: independent ambulation Overall status at discharge: patient is progressing back to baseline - Discharge Instructions Follow Up With: NONE,PCP [Primary Care Provider] - (in 1-2 weeks) Misael Gordillo DO [Partnered Physician] - (1 week) Forms: Work/School Release Additional Instructions: If you develop pain and weakness again, come to the ER right away - Diet and Activity Activity: increase activity as tolerated Diet: advance to your usual diet, other (Drink plenty of fluids) Hospital course: Ms. Akers is a 22 year old female patient with past medical history of prior hepatitis C diagnosis and prior history of IV drug abuse was hospitalized here with acute rhabdomyolysis of uncertain etiology. She had been having decreased sensation in her lower extremities along with increased pain. She reported no recent increased exercise or changes to medications. She also has not been taking any weight loss supplements and is not on any statins. Her CK level on initial presentation to the ER was greater than 42,670. She also had mild kidney injury with creatinine of 1.32. She was started on treatment for this with intravenous fluids. Her ESR was normal while the CRP was slightly elevated at 7. Extensive rheumatologic workup was also done and so far has been negative. Only thing positive was hepatitis C antibody. I discussed her case with rheumatology and they will evaluate the patient in the clinic to further ascertain etiology. With intravenous hydration, patient's symptoms improved and her CK level has been slowly coming down. This morning her CPK level is 18,031. However her symptoms have significantly improved and patient is able to ambulate well without any pain or discomfort. Her sensation has also returned. As such she is clinically stable for discharge and will follow- up with her primary care provider and rheumatology as outpatient. She is advised to drink plenty of fluids. She is also advised to avoid strenuous exercise or at least a week. She will get her CPK level checked in 2-3 days. Her urine was positive for group B streptococci and she was treated with ampicillin. She will complete a short 3 day course of treatment for this - Time Spent with Patient Total time spent providing and/or coordinating discharge services: Less than 30 minutes (25 min) - Constitutional Vitals: Temp Pulse Resp BP Pulse Ox 98.5 F 70 14 100/64 98 01/13/17 07:31 01/13/17 07:31 01/13/17 07:31 01/13/17 07:31 01/13/17 07:31 General appearance: Present: cooperative, A&O X 3, pleasant, no acute distress, answers questions appropriately - Cardiovascular Cardiovascular exam: Present: RRR, +S1, +S2. Absent: diastolic murmur, gallop, rubs, systolic murmur - GI/Abdominal GI/Abdominal exam: Present: normal bowel sounds, soft, no peritoneal signs. Absent: distended, tenderness - Extremities Exam Extremities exam: Present: warm, radial pulses palpable and symmetrical. Absent : calf tenderness, cyanotic, pedal edema - Neurological Exam Neurological exam: Present: CN II-XII intact, oriented X3, no focal deficits, strengths equal and symetr throughout. Absent: facial droop, speech deficit - Skin Skin exam: Present: dry, intact
[2017-01-13 11:56] LABS: ANA IgG by ELISA NONE DETECTED (None Detected)
[2017-01-13 18:38] LABS: APTT (LE Anticoag) 36 sec (32-48); Diluted Russell Viper Venom 35 sec (33-44); PT (LE-Anticoag) 13.6 sec (12.0-15.5)
[2017-01-19 07:41] LABS: Myeloperoxidase Ab 1 AU/mL (0-19); Serine Protease-3 Antibody 0 AU/mL (0-19)
== END 2017-01-13 13:20 | disposition home or self-care (01) | DRG 351 ==
LOC: 3ANU 12:11 → EMEROO 12:11 → 3ANU 15:25
PROVIDERS: ADMIT Family Medicine; ATTEND Internal Medicine

== ENCOUNTER 2019-07-23 12:23 | Inpatient (IN) ==
[2019-07-23 11:13] LABS: Basophils % 0.3 %; Eosinophils # 0.2 K/mcL (0.0-0.6); Eosinophils % 1.7 %; Hemoglobin 9.8 g/dL (11.5-15.4); Immature Granulocytes % 0.3 % (0-4); Lymphocytes # 1.8 K/mcL (0.6-4.6); Lymphocytes % 21.1 %; Mean Corpuscular HGB Conc 31.6 g/dL (31.6-35.5); Mean Corpuscular Hemoglobin 26.8 pg (28.0-33.3); Mean Corpuscular Volume 84.9 fL (83.0-100.0); Mean Platelet Volume 11.7 fL (9.4-12.4); Monocytes # 0.9 K/mcL (0.0-1.3); Monocytes % 10.2 %; Neutrophils # 5.8 K/mcL (1.6-8.9); Nucleated Red Blood Cells 0.6 /100 WBC (0); Platelet Count 314 K/mcL (140-400); Red Blood Count 3.65 M/mcL (3.82-4.97); Red Cell Distribution Width 13.2 % (11.5-14.5); Segmented Neutrophils % 66.4 %; White Blood Count 8.7 K/mcL (4.3-11.1)
[2019-07-23 11:21] LABS: Bilirubin,Urine Negative (Negative); Blood,Urine Negative (Negative); Color,Urine Yellow (Yellow); Glucose,Urine (UA) Normal (Normal); Ketones,Urine Negative (Negative); Leukocyte Esterase,Urine Small (Negative); Nitrite,Urine Negative (Negative); PH,Urine 7.5 pH Units (5.0-8.0); Protein,Urine 30 mg/dL (Neg-Trace); Specific Gravity,Urine 1.018 (1.010-1.025); Urobilinogen,Urine Normal (Normal)
[2019-07-23 11:22] LABS: Protein/Creatinine Ratio,Urine 0.7 mg/mg (0.00-0.20)
[2019-07-23 11:23] LABS: Bacteria,Urine Moderate per hpf (None-Few); Hyaline Casts,Urine None Seen per lpf (None-Few); RBC,Urine 0-3 per hpf (0-3); Squamous Epithelial Cell,Urine Many per lpf (None-Few)
[2019-07-23 11:25] LABS: Clarity,Urine Slightly Hazy (Clear)
[2019-07-23 11:32] LABS: Alanine Aminotransferase 93 Units/L (7-52); Aspartate Amino Transferase 102 Units/L (13-39); BUN/Creatinine Ratio 21 (6-26); Blood Urea Nitrogen 9 mg/dL (6-20); Lactate Dehydrogenase 208 Units/L (140-271); Uric Acid 1.9 mg/dL (2.3-7.6); eGFR For African Americans > 60 (> 60); eGFR For Non-African Americans > 60 (> 60)
[2019-07-23] MEDS: miSOPROStoL 25 MCG TABLET PO PRN ×2 (13:52→18:23)
[2019-07-23] MEDS ORDERED: Famotidine 20 MG/2 ML VIAL IVP PRN (18:54)
[2019-07-23] MEDS ORDERED: Naloxone 0.4 MG/ML INJ IVP PRN (18:54)
[2019-07-23] MEDS ORDERED: Metoclopramide 10 MG/2 ML VIAL IVP PRN (18:54)
[2019-07-23] MEDS ORDERED: NIFEdipine 10 MG CAPSULE PO ONE (18:54)
[2019-07-23] MEDS ORDERED: *HR* FentaNYL (PF) 100 MCG/2 ML VIAL IVP PRN (18:54)
[2019-07-23] MEDS ORDERED: Lidocaine 1% 20 ML MDV INFILT PRN (18:54)
[2019-07-23] MEDS ORDERED: Ondansetron 4 MG/2 ML VIAL IVP PRN (18:54)
[2019-07-23] MEDS ORDERED: Calcium Gluconate 1,000 MG/10 ML VIAL IVP PRN (18:57)
[2019-07-23] MEDS ORDERED: Magnesium Sulf 20gm/LR 500mL 20 GM/500 ML IV.SOLN IVC SCH (19:00)
[2019-07-23] MEDS: Ringers Solution, Lactated 1,000 ML IVC SCH (19:34)
[2019-07-23] MEDS: Magnesium Sulf 20 gm/SW 500mL 20 GM/500 ML IV.SOLN IVC SCH (20:48)
[2019-07-23] MEDS: Oxytocin 20 units/ LR 1000 mL 20 UNIT/1,000 ML BAG IVC SCH (22:57)
[2019-07-23] MEDS ORDERED: Epidural Premix (fent/bupiv) 110 ML EP ONE (23:50)
[2019-07-24] MEDS ORDERED: EPINEPHrine 1 MG/ML VIAL ONE (03:54)
[2019-07-24] MEDS ORDERED: EPHEDrine 50 MG/ML VIAL IVP ONE (04:14)
[2019-07-24] MEDS ORDERED: Epidural Premix (fent/bupiv) 110 ML EP ONE ×4 (06:57→21:17)
[2019-07-24] MEDS: Magnesium Sulf 20 gm/SW 500mL 20 GM/500 ML IV.SOLN IVC SCH (07:02)
[2019-07-24] MEDS ORDERED: Ropivacaine/PF 0.2% 20 ML VIAL ONE (08:24)
[2019-07-24] MEDS ORDERED: *HR* Phenylephrine 10 MG/ML VIAL ONE (08:44)
[2019-07-24 08:51] LABS: Amphetamine Screen,Urine Negative ng/mL (Cutoff=1000); Barbiturate Screen,Urine Negative ng/mL (Cutoff=200); Benzodiazepines Screen,Urine Negative ng/mL (Cutoff=200); Cannabinoid Screen,Urine Negative ng/mL (Cutoff = 50); Cocaine Screen,Urine Negative ng/mL (Cutoff= 300); Opiate Screen,Urine Negative ng/mL (Cutoff=300); Phencyclidine Screen,Urine Negative ng/mL (Cutoff=25)
[2019-07-24 10:40] LABS: Basophils % 0.4 %; Eosinophils % 0.1 %; Hematocrit 30.9 % (35.3-44.9); Hemoglobin 9.4 g/dL (11.5-15.4); Immature Granulocytes % 0.4 % (0-4); Lymphocytes # 1.4 K/mcL (0.6-4.6); Lymphocytes % 13.6 %; Mean Corpuscular HGB Conc 30.4 g/dL (31.6-35.5); Mean Corpuscular Volume 85.4 fL (83.0-100.0); Mean Platelet Volume 11.5 fL (9.4-12.4); Monocytes # 0.7 K/mcL (0.0-1.3); Monocytes % 6.5 %; Neutrophils # 8.3 K/mcL (1.6-8.9); Nucleated Red Blood Cells 0.2 /100 WBC (0); Platelet Count 388 K/mcL (140-400); Red Blood Count 3.62 M/mcL (3.82-4.97); Red Cell Distribution Width 13.3 % (11.5-14.5); White Blood Count 10.5 K/mcL (4.3-11.1)
[2019-07-24 10:51] LABS: Protein/Creatinine Ratio,Urine 1.56 mg/mg (0.00-0.20)
[2019-07-24 11:01] LABS: Alanine Aminotransferase 89 Units/L (7-52); Aspartate Amino Transferase 100 Units/L (13-39); BUN/Creatinine Ratio 14 (6-26); Blood Urea Nitrogen 8 mg/dL (6-20); Lactate Dehydrogenase 195 Units/L (140-271); Uric Acid 3.1 mg/dL (2.3-7.6); eGFR For African Americans > 60 (> 60); eGFR For Non-African Americans > 60 (> 60)
[2019-07-24] MEDS ORDERED: EPHEDrine 50 MG/ML VIAL IVP PRN (21:17)
[2019-07-24] MEDS ORDERED: *HR* FentaNYL (PF) 100 MCG/2 ML VIAL EP ONE (21:17)
[2019-07-24] MEDS ORDERED: Ondansetron 4 MG/2 ML VIAL IVP PRN (21:17)
[2019-07-24] MEDS ORDERED: Naloxone 0.4 MG/ML INJ IVP PRN (21:17)
[2019-07-24] MEDS ORDERED: Epidural Premix (fent/bupiv) 110 ML EP SCH (21:30)
[2019-07-25] MEDS ORDERED: Acetaminophen 325 MG TABLET PO ONE (00:36)
[2019-07-25] MEDS: Ringers Solution, Lactated 1,000 ML IVC SCH (00:46)
[2019-07-25] MEDS ORDERED: Azithromycin 500 MG in 0.9 % Sodium Chloride 250 ML IVPB ONE (08:08)
[2019-07-25] MEDS ORDERED: *HR* Morphine Sulfate/PF 10 MG/10 ML AMPUL ONE (08:38)
[2019-07-25] MEDS ORDERED: EPHEDrine 50 MG/ML VIAL ONE (08:39)
[2019-07-25] MEDS ORDERED: *HR* Phenylephrine 10 MG/ML VIAL ONE (08:39)
[2019-07-25] MEDS ORDERED: Lidocaine/EPI 1:200k 2% PF 20 ML VIAL ONE (08:41)
[2019-07-25] MEDS ORDERED: *HR* Oxytocin 10 UNIT/ML VIAL IM ONE (08:42)
[2019-07-25] MEDS ORDERED: *HR* Meperidine 25 MG/ML SYRINGE IVP PRN (09:59)
[2019-07-25] MEDS ORDERED: *HR* Promethazine 25 MG/ML VIAL IVP PRN (09:59)
[2019-07-25] MEDS ORDERED: *HR* HYDROmorphone PF 0.5 MG/0.5 ML SYRINGE IVP PRN (09:59)
[2019-07-25] MEDS ORDERED: Naloxone 0.4 MG/ML INJ IVP PRN (09:59)
[2019-07-25] MEDS ORDERED: *HR* OxyCODONE Immed Rel 5 MG TABLET PO PRN (09:59)
[2019-07-25] MEDS ORDERED: Ondansetron 4 MG/2 ML VIAL IVP PRN ×2 (09:59→14:08)
[2019-07-25] MEDS ORDERED: *HR* HYDROmorphone (PF) 1 MG/ML SYRINGE IVP PRN (09:59)
[2019-07-25] MEDS ORDERED: Ondansetron 4 MG/2 ML VIAL IVP ONE (09:59)
[2019-07-25] MEDS ORDERED: Acetaminophen IV 1,000 MG/100 ML INFUS..BTL IVPB ONE (10:03)
[2019-07-25] MEDS: Magnesium Sulf 20 gm/SW 500mL 20 GM/500 ML IV.SOLN IVC SCH (10:36)
[2019-07-25] MEDS: Oxytocin 20 units/ LR 1000 mL 20 UNIT/1,000 ML BAG IVC SCH (10:37)
[2019-07-25] MEDS ORDERED: Metoclopramide 10 MG/2 ML VIAL IVP PRN (14:08)
[2019-07-25] MEDS ORDERED: Sennosides 8.6 MG TABLET PO PRN (14:08)
[2019-07-25] MEDS ORDERED: Oxytocin 20 units/ LR 1000 mL 20 UNIT/1,000 ML BAG IVC SCH (14:08)
[2019-07-25] MEDS ORDERED: Acyclovir 200 MG CAPSULE PO PRN (14:08)
[2019-07-25] MEDS ORDERED: Simethicone 80 MG TAB.CHEW PO PRN (14:08)
[2019-07-25] MEDS ORDERED: Magnesium Sulf 20 gm/SW 500mL 20 GM/500 ML IV.SOLN IVC SCH (14:30)
[2019-07-25] MEDS: *HR* OxyCODONE/APAP 5/325 TABLET PO PRN ×2 (14:50→20:32)
[2019-07-25] MEDS: metroNIDAZOLE 500 MG TABLET PO SCH ×2 (14:51→20:32)
[2019-07-25 14:55] LABS: Basophils % 0.2 %; Eosinophils % 0.1 %; Hemoglobin 8.9 g/dL (11.5-15.4); Immature Platelets 9.1 % (1.1-6.1); Mean Platelet Volume 11.7 fL (9.4-12.4); Red Cell Distribution Width 13.6 % (11.5-14.5)
[2019-07-25 14:56] LABS: Hematocrit 28.5 % (35.3-44.9); Immature Granulocytes % 0.5 % (0-4); Lymphocytes # 1.5 K/mcL (0.6-4.6); Lymphocytes % 8.3 %; Mean Corpuscular HGB Conc 31.2 g/dL (31.6-35.5); Mean Corpuscular Hemoglobin 26.3 pg (28.0-33.3); Mean Corpuscular Volume 84.1 fL (83.0-100.0); Monocytes # 1.5 K/mcL (0.0-1.3); Monocytes % 8.2 %; Nucleated Red Blood Cells 0.3 /100 WBC (0); Platelet Count 317 K/mcL (140-400); Red Blood Count 3.39 M/mcL (3.82-4.97); Segmented Neutrophils % 82.7 %; White Blood Count 18.3 K/mcL (4.3-11.1)
[2019-07-25 15:12] LABS: Alanine Aminotransferase 59 Units/L (7-52); Aspartate Amino Transferase 60 Units/L (13-39); BUN/Creatinine Ratio 9 (6-26); Blood Urea Nitrogen 5 mg/dL (6-20); Lactate Dehydrogenase 267 Units/L (140-271); Uric Acid 3.2 mg/dL (2.3-7.6); eGFR For African Americans > 60 (> 60); eGFR For Non-African Americans > 60 (> 60)
[2019-07-25 15:13] LABS: Neutrophils # 15.1 K/mcL (1.6-8.9)
[2019-07-25] MEDS: ceFAZolin 2,000 MG in 0.9 % Sodium Chloride 100 ML IVPB SCH ×2 (16:14→23:06)
[2019-07-25] MEDS: Ibuprofen 600 MG TABLET PO PRN (17:39)
[2019-07-26] MEDS: *HR* OxyCODONE/APAP 5/325 TABLET PO PRN ×2 (00:17→05:46)
[2019-07-26] MEDS: Ibuprofen 600 MG TABLET PO PRN ×4 (00:19→22:11)
[2019-07-26 04:31] LABS: Basophils % 0.2 %; Eosinophils # 0.1 K/mcL (0.0-0.6); Eosinophils % 0.5 %; Hematocrit 26.2 % (35.3-44.9); Hemoglobin 7.9 g/dL (11.5-15.4); Immature Granulocytes % 0.7 % (0-4); Lymphocytes # 2.1 K/mcL (0.6-4.6); Lymphocytes % 15.8 %; Mean Corpuscular HGB Conc 30.2 g/dL (31.6-35.5); Mean Corpuscular Hemoglobin 25.5 pg (28.0-33.3); Mean Corpuscular Volume 84.5 fL (83.0-100.0); Mean Platelet Volume 10.7 fL (9.4-12.4); Monocytes # 1.3 K/mcL (0.0-1.3); Monocytes % 9.9 %; Neutrophils # 9.8 K/mcL (1.6-8.9); Nucleated Red Blood Cells 0.2 /100 WBC (0); Platelet Count 218 K/mcL (140-400); Red Cell Distribution Width 13.5 % (11.5-14.5); Segmented Neutrophils % 72.9 %; White Blood Count 13.4 K/mcL (4.3-11.1)
[2019-07-26] MEDS: metroNIDAZOLE 500 MG TABLET PO SCH ×3 (08:27→20:57)
[2019-07-26] MEDS: ceFAZolin 2,000 MG in 0.9 % Sodium Chloride 100 ML IVPB SCH (08:27)
[2019-07-26] MEDS: Prenatal Vit/FA 1 EACH TABLET PO SCH (08:33)
[2019-07-26] MEDS ORDERED: Methylergonovine 0.2 MG/ML AMPUL IM ONE (09:29)
[2019-07-26] MEDS: *HR* Buprenorphine HCl 8 MG TAB.SUBL SL SCH ×2 (10:42→20:57)
[2019-07-26] MEDS: QUEtiapine Fumarate 25 MG TABLET PO SCH (13:37)
[2019-07-27] MEDS: *HR* Buprenorphine HCl 8 MG TAB.SUBL SL SCH ×2 (08:29→20:38)
[2019-07-27] MEDS: Prenatal Vit/FA 1 EACH TABLET PO SCH (08:29)
[2019-07-27] MEDS: metroNIDAZOLE 500 MG TABLET PO SCH (08:29)
[2019-07-27] MEDS: Ibuprofen 600 MG TABLET PO PRN ×3 (08:35→23:13)
[2019-07-27] MEDS: QUEtiapine Fumarate 25 MG TABLET PO SCH (20:38)
[2019-07-28] MEDS: *HR* Buprenorphine HCl 8 MG TAB.SUBL SL SCH (07:41)
[2019-07-28] MEDS: Ibuprofen 600 MG TABLET PO PRN (07:42)
[2019-07-28] MEDS: Prenatal Vit/FA 1 EACH TABLET PO SCH (07:42)
[2019-07-28 08:01] VITALS: BP 149/78
== END 2019-07-28 09:30 | disposition home or self-care (01) | DRG 560 ==
LOC: 1NENULAB → 1NENUOBS 07-24 09:34 → 1NENULAB 07-24 09:45 → 1NENUOBS 07-25 12:30
PROVIDERS: ADMIT Obstetrics & Gynecology; ATTEND Obstetrics & Gynecology